=== PATIENT | female | born 1965 | race Caucasian/White ===

== ENCOUNTER 2016-11-15 10:50 | Emergency (ER) | payer OTHER ==
[~2016-11-15] VITALS: Ht 167.6 cm; Wt 78.0 kg
[2016-11-15 10:52] VITALS: Ht 167.6 cm; Wt 78.0 kg
[2016-11-15 10:56] VITALS: BP 189/112
--- NOTE | 2016-11-15 11:24 | ERD ---
ER Documentation Chief Complaint Date/Time DATE: 11/15/16 TIME: 11:21 Chief Complaint Pt presents with R foot pain and swelling, injured while doing karate. HPI 50-year-old female presents with right lateral foot pain and swelling that occurred 2 days ago when she injured it doing karate. She complains of pain at the fifth and fourth metatarsals, achy, worse with weightbearing, better at rest , it is moderate pain and improving with ibuprofen. She has not had any other injuries. She reports she does have a plate at the area that was done a few years ago. ROS All systems reviewed and are negative except as per history of present illness. Medications Home Meds Active Scripts Hydrocodone/Acetaminophen ([place] 5-325 Tablet) 1 Each Tablet, 1 TAB PO Q6H Y for PAIN, #20 TAB Prov:JANKI ASKEW PA-C 11/15/16 Allergies Allergies: Coded Allergies: droperidol (Unverified Adverse Reaction, Intermediate, 11/15/16) muscle weakness on right side PMhx/Soc History of Surgery: Yes (Wrist surgery, left knee surgery, plate in right foot) Hx Miscellaneous Medical Probl: Yes (Raynauds, arthritis) Hx Alcohol Use: Yes Hx Substance Use: No Hx Tobacco Use: No Physical Exam Vitals Vital Signs Date Time Temp Pulse Resp B/P Pulse Ox O2 Delivery O2 Flow Rate FiO2 11/15/16 10:56 189/112 11/15/16 10:52 97.4 71 20 228/119 98 Physical Exam General: Well-developed, well-nourished. The patient appears in no acute distress. HEENT: Head is normocephalic, atraumatic. No scleral icterus. Neck: Supple. Nontender. Lungs: Clear to auscultation. Normal air movement. Heart: Regular rate and rhythm. S1 and S2 are normal. No murmurs, gallops, or rubs. Abdomen: Nondistended. Extremities: Scar at the right fifth metatarsal, there is tenderness at the distal aspect, with mild swelling. There is no warmth or erythema. Pulses 2+ bilaterally. Ankle is unremarkable. Neurologic: Alert and oriented 3. No focal deficits. Normal speech and gait. Skin: Normal turgor. No rash or lesions. Results 24 hrs Current Medications Medications (Trade) Dose Ordered Sig/Abdullahi Route PRN Reason Start Time Stop Time Status Last Admin Dose Admin Acetaminophen/ Hydrocodone Bitart ([place] (5/611)) 1 tab ONCE ONCE PO 11/15/16 11:30 11/15/16 11:31 DC 11/15/16 11:28 DIAGNOSTIC IMAGING REPORT Patient: ANDREW ROSSI : 1965 Age: 50 Sex: F MR #: [id number] DOS: 11/15/16 1116 Ordering MD: JANKI ASKEW PA-C Location: [facility] Room/Bed: PROCEDURE: Right foot series. CLINICAL INDICATION: Right foot pain TECHNIQUE: Three views of the right foot are available for review. COMPARISON: None available FINDINGS: Patient is status post open reduction and internal fixation of fourth proximal metatarsal fracture. There is an acute appearing proximal fifth metatarsal fracture there is no other definitive evidence of fracture or dislocation. There is a bipartite medial sesamoid bone with greater than expected distraction between the 2 segments which may be related to prior fracture. There are severe degenerative changes of the second and third proximal interphalangeal joints. The remainder of joint spaces are grossly well maintained IMPRESSION: 1. Acute appearing fracture of the proximal fifth metatarsal. 2. Bipartite lateral sesamoid with increased distraction compared to typical examples. Recommend correlation with point tenderness. If there is tenderness in this location, MRI is recommended. 3. Status post ORIF of proximal fourth metatarsal fracture. 4. 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 RPTAT: KK .Virgil Fernando MD, MD Date Time Electronically viewed and signed by .Virgil Fernando MD, on 2016 12:27 .B/ CC: JANKI ASKEW PA-C Procedures/MDM ED course: She was given [place] for pain. Patient's right foot was placed in a short leg splint and given crutches to be nonweightbearing. Splint Assessment: Neurovascularly intact post splint placement with good fit. Medical decision making: This 42-year-old female presents with traumatic right foot pain, patient presents with an acute closed left fifth metatarsal fracture , was placed in a short leg splint to be follow-up with orthopedics. The case was reviewed and discussed with who agrees with the plan of care including labs, treatment, and advanced imaging as appropriate. Departure Diagnosis: Primary Impression: Fx metatarsal-closed Condition: JANKI Goldstein PA-C Nov 15, 2016 11:24
[2016-11-15] MEDS ORDERED: HYDROCODONE/APAP (5/325) TAB PO ONE (11:30)
--- NOTE | 2016-11-15 12:27 | RADRPT ---
PROCEDURE: Right foot series. CLINICAL INDICATION: Right foot pain TECHNIQUE: Three views of the right foot are available for review. COMPARISON: None available FINDINGS: Patient is status post open reduction and internal fixation of fourth proximal metatarsal fracture. There is an acute appearing proximal fifth metatarsal fracture there is no other definitive evidenc e of fracture or dislocation. There is a bipartite medial sesamoid bone with greater than expected distraction between the 2 segments which may be related to prior fracture. There are severe degener ative changes of the second and third proximal interphalangeal joints. The remainder of joint space s are grossly well maintained IMPRESSION: 1. Acute appearing fracture of the proximal fifth metatarsal. 2. Bipartite lateral sesamoid with increased distraction compared to typical examples. Recommend c orrelation with point tenderness. If there is tenderness in this location, MRI is recommended. 3. Status post ORIF of proximal fourth metatarsal fracture. 4. 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 RPTAT: KK .Virgil Fernando MD, Date Time Electronically viewed and signed by .Virgil Fernando MD, on 11/15/2016 12:27 .B/
[2016-11-15] MEDS ORDERED: HYDR-906 PO (13:06)
== END 2016-11-15 13:35 | disposition home or self-care (01) ==
LOC: FTE 10:50
DX: S92.351A Displaced fracture of fifth metatarsal bone, right foot, initial encounter for closed fracture (principal); X58.XXXA Exposure to other specified factors, initial encounter; Y92.9 Unspecified place or not applicable
CPT/HCPCS: 73630